=== PATIENT | male | born 1995 | race Caucasian/White ===

== ENCOUNTER 2017-01-03 14:22 | Emergency (ER) | payer BC ==
[~2017-01-03] VITALS: Ht 175.3 cm; Wt 71.0 kg
[~2017-01-03 14:22] MED LIST: AMOX1TAB10 PO; IBUP-1542 PO; INSU100C5 SQ; INSU100V27 SC; ONDA-43 PO
[2017-01-03 14:33] VITALS: Ht 175.3 cm; Wt 71.0 kg
[2017-01-03] MEDS ORDERED: IBUPROFEN 800 MG TAB PO ONE (17:00)
[2017-01-03] MEDS ORDERED: IBUP-1542 PO (17:32)
--- NOTE | 2017-01-03 17:43 | RADRPT ---
PROCEDURE: XR Hand. CLINICAL INDICATION: Trauma. Right hand pain. TECHNIQUE: Three views. Frontal, lateral, and oblique images of the right hand were obtained. COMPARISON: No prior studies are available for comparison. FINDINGS: There is no fracture or dislocation. The soft tissues are normal. Articular surfaces are intact. There is no lytic or blastic lesion. There is no radiopaque foreign body. IMPRESSION: 1. Unremarkable images of the right hand. RPTAT: QQ .Gio Madrigal MD, MD Date Time Electronically viewed and signed by .Gio Madrigal MD, on 01/03/2017 17:43 .R/
--- NOTE | 2017-01-03 20:19 | ERD ---
ER Documentation Chief Complaint Date/Time DATE: 01/03/17 TIME: 20:18 Chief Complaint right hand/finger pain from blunt trauma HPI Patient is a 21-year-old male with diabetes who presents with an injury to his right hand. He said that a chair fell on top of his right hand just prior to arrival. He has a blood blister at the distal right second finger. He has not had no treatment as of yet. He has full range of motion of the hand. ROS All systems reviewed and are negative except as per history of present illness. Medications Home Meds Active Scripts Ibuprofen* (Motrin*) 600 Mg Tab, 600 MG PO Q6H Y for PAIN AND OR ELEVATED TEMP, #30 TAB Prov:FREDI MCMAHAN MD 01/03/17 Amox Tr/Potassium Clavulanate (Amox Tr-K Clv 875-125 Mg Tab) 1 Tab Tablet, 1 TAB PO BID, #20 TAB Prov:CHRISTIANO GLOVER PA-C 02/03/16 Ibuprofen* (Motrin*) 600 Mg Tab, 600 MG PO Q6, #20 TAB Prov:CHRISTIANO GLOVER PA-C 02/03/16 Ondansetron Hcl* (Zofran*) 4 Mg Tab, 4 MG PO Q4H Y for NAUSEA AND OR VOMITING, # 20 TAB Prov:ANJU HARTMANN MD 09/05/15 Insulin Lisp Protam/Lisp Human* (Humalog Mix (75/25)*) 100 Units/Ml Susp, 0 SC AC BREAKFAST, #1 EA 1 Refill Prov:ANJU HARTMANN MD 09/05/15 Reported Medications Insulin Glargine,Hum.rec.anlog (Lantus) 100 U/Ml Cartridge, 0 UNITS SQ DAILY 01/21/12 Allergies Allergies: Coded Allergies: No Known Allergies (Verified Allergy, Mild, 08/25/14) PMhx/Soc History of Surgery: No Anesthesia Reaction: No Hx Neurological Disorder: No Hx Respiratory Disorders: No Hx Cardiac Disorders: No Hx Psychiatric Problems: No Hx Miscellaneous Medical Probl: Yes (DM Type 2) Hx Alcohol Use: Yes (OCCASIOANNALY BEER) Hx Substance Use: Yes (MARIJUANA) Hx Tobacco Use: Yes (1/2 PACK OF CIGARRETS A DAY) Smoking Status: Current some day smoker FmHx Family History: diabetes Physical Exam Vitals Vital Signs Date Time Temp Pulse Resp B/P Pulse Ox O2 Delivery O2 Flow Rate FiO2 01/03/17 14:33 98.2 82 18 132/81 97 Physical Exam Const: No acute distress Head: Atraumatic Eyes: Normal Conjunctiva ENT: Normal External Ears, Nose and Mouth. Neck: Full range of motion..~ No meningismus. Resp: Clear to auscultation bilaterally Cardio: Regular rate and rhythm, no murmurs Abd: Soft, non tender, non distended. Normal bowel sounds Skin: Small hematoma to the distal right second finger Back: No midline or flank tenderness Ext: No cyanosis, or edema, no deformity or bruising noted of the hand Neur: Awake and alert Psych: Normal Mood and Affect Results 24 hrs Current Medications Medications (Trade) Dose Ordered Sig/Yoselyn Route PRN Reason Start Time Stop Time Status Last Admin Dose Admin Ibuprofen (Motrin) 800 mg ONCE ONCE PO 01/03/17 17:00 01/03/17 17:01 DC 01/03/17 16:54 Procedures/MDM X-ray Hand 3V interpreted by me: Scaphoid: Normal Bones: No fracture Joints: No dislocation Foreign body: None Patient is a 21-year-old male presents with hematoma to the distal second finger as well as right hand pain. X-ray of the hand shows no fracture or dislocation. At this point I believe outpatient management is appropriate. I believe the patient likely has a hand contusion and distal second finger hematoma. The patient will need to follow-up closely with his primary doctor and could return for any worsening symptoms. I do not believe he requires further treatment or admission to the hospital this time. Departure Diagnosis: Primary Impression: Hematoma Additional Impression: Pain of hand Laterality: right Qualified Code: M79.641 - Pain of right hand Condition: Fair Patient Instructions: Contusion, Hand, Hematoma Additional Instructions: Call your primary care doctor TOMORROW for an appointment during the next 1-2 days.See the doctor sooner or return here if your condition worsens before your appointment time. FREDI MCMAHAN MD Jan 03, 2017 20:19
== END 2017-01-03 19:10 | disposition left against medical advice (07) ==
LOC: FTE 14:22 → E/R 19:10
DX: S60.021A Contusion of right index finger without damage to nail, initial encounter (principal); E11.9 Type 2 diabetes mellitus without complications; F17.210 Nicotine dependence, cigarettes, uncomplicated; W20.8XXA Other cause of strike by thrown, projected or falling object, initial encounter; Y92.9 Unspecified place or not applicable; Z79.4 Long term (current) use of insulin
CPT/HCPCS: 73130; Z7502; Z7610

== ENCOUNTER 2017-07-07 05:11 | Emergency (ER) | payer BC, MEDICAID ==
[~2017-07-07] VITALS: Ht 175.3 cm; Wt 69.5 kg
[2017-07-07 05:13] VITALS: Ht 175.3 cm; Wt 69.5 kg
[2017-07-07] MEDS ORDERED: ONDANSETRON 4 MG INJ IV STA (06:32)
[2017-07-07] MEDS ORDERED: SOD CHLORIDE 0.9% 1,000 ML IV STA (06:32)
[2017-07-07 07:24] LABS: BASOPHIL # 0.1 10^3/ul (0.0-0.1); BASOPHILS % 1.1 % (0.0-2.0); EOSINOPHILS # 0.4 10^3/ul (0.0-0.5); EOSINOPHILS % 4.7 % (0.0-7.0); HEMATOCRIT 44.1 % (42.0-52.0); HEMOGLOBIN 16.1 g/dl (14.0-18.0); LYMPHOCYTES % 26.3 % (15.0-51.0); MEAN CORPUSCULAR HEMOGLOBIN 32.3 pg (29.0-33.0); MEAN CORPUSCULAR HGB CONC 36.5 g/dl (32.0-37.0); MEAN CORPUSCULAR VOLUME 88.4 fl (82.0-101.0); MEAN PLATELET VOLUME 10.4 fl (7.4-10.4); MONOCYTE # 0.5 10^3/ul (0.3-0.9); MONOCYTES % 6.6 % (0.0-11.0); PLATELET COUNT 275 10^3/UL (140-415); RED BLOOD COUNT 4.99 10^6/ul (4.70-6.10); RED CELL DISTRIBUTION WIDTH 11.6 % (11.5-14.5); WHITE BLOOD COUNT 7.6 10^3/ul (4.8-10.8)
[2017-07-07 07:48] LABS: ALBUMIN 4.4 g/dl (3.3-4.9); ALBUMIN/GLOBULIN RATIO 1.62; BILIRUBIN,INDIRECT 0.5 mg/dl (0-1.1); BILIRUBIN,TOTAL 0.5 mg/dl (0.2-1.3); CALCIUM 10.4 mg/dl (8.4-10.2); CREATININE 0.69 mg/dl (0.61-1.24); POTASSIUM 3.9 mmol/L (3.5-5.1); TOTAL PROTEIN 7.1 g/dl (6.1-8.1)
[2017-07-07] MEDS ORDERED: KETOROLAC 30 MG INJ IV STA (08:43)
[2017-07-07 08:50] LABS: ADD UMIC NO; UR ASCORBIC ACID NEGATIVE (NEGATIVE); UR BILIRUBIN (Dip) NEGATIVE (NEGATIVE); UR BLOOD (Dip) NEGATIVE (NEGATIVE); UR CLARITY CLEAR (CLEAR); UR COLOR STRAW (YELLOW); UR GLUCOSE (Dip) 3+ mg/dL (NEGATIVE); UR KETONES (Dip) 1+ mg/dL (NEGATIVE); UR LEUKOCYTE ESTERASE (Dip) NEGATIVE Leu/ul (NEGATIVE); UR NITRITE (Dip) NEGATIVE (NEGATIVE); UR SPECIFIC GRAVITY (Dip) 1.027 (1.003-1.030); UR TOTAL PROTEIN (Dip) NEGATIVE (NEGATIVE); UR UROBILINOGEN (Dip) NEGATIVE (NEGATIVE)
[2017-07-07] MEDS ORDERED: IBUP-1542 PO (09:48)
[2017-07-07] MEDS ORDERED: ONDA4TAB14 PO (09:48)
--- NOTE | 2017-07-07 10:52 | ERD ---
ER Documentation Chief Complaint Date/Time DATE: 07/07/17 TIME: 10:49 Chief Complaint vomiting since 1600. Hx of DM Type 1 HPI 22-year-old male patient with a past medical history of type 1 diabetes presents to the ED complaining of vomiting since 4 PM yesterday. States that he has had intermittent vomiting for 1 week states that he also has body aches. Denies any abdominal pain, chest pain, shortness of breath, diarrhea, hematemesis, hemoptysis, melena. Patient reports reports that his son is also sick with cough cold symptoms. States that he still able to tolerate oral intake. Denies any decreased appetite. ROS All systems reviewed and are negative except as per history of present illness. Medications Home Meds Active Scripts Ibuprofen* (Motrin*) 600 Mg Tab, 600 MG PO Q6, #30 TAB Prov:DUANE JOHNSON PA-C 07/07/17 Ondansetron (Ondansetron Odt) 4 Mg Tab.rapdis, 4 MG PO Q6H Y for NAUSEA AND/OR VOMITING, #14 TAB Prov:DUANE JOHNSON PA-C 07/07/17 Ibuprofen* (Motrin*) 600 Mg Tab, 600 MG PO Q6H Y for PAIN AND OR ELEVATED TEMP, #30 TAB Prov:FREDI MCMAHAN MD 01/03/17 Amox Tr/Potassium Clavulanate (Amox Tr-K Clv 875-125 Mg Tab) 1 Tab Tablet, 1 TAB PO BID, #20 TAB Prov:CHRISTIANO GLOVER PA-C 02/03/16 Ibuprofen* (Motrin*) 600 Mg Tab, 600 MG PO Q6, #20 TAB Prov:CHRISTIANO GLOVER PA-C 02/03/16 Ondansetron Hcl* (Zofran*) 4 Mg Tab, 4 MG PO Q4H Y for NAUSEA AND OR VOMITING, # 20 TAB Prov:ANJU HARTMANN MD 09/05/15 Insulin Lisp Protam/Lisp Human* (Humalog Mix (75/25)*) 100 Units/Ml Susp, 0 SC AC BREAKFAST, #1 EA 1 Refill Prov:ANJU HARTMANN MD 09/05/15 Reported Medications Insulin Glargine,Hum.rec.anlog (Lantus) 100 U/Ml Cartridge, 0 UNITS SQ DAILY 3/26/12 Allergies Allergies: Coded Allergies: No Known Allergies (Verified Allergy, Mild, 08/25/14) PMhx/Soc History of Surgery: No Anesthesia Reaction: No Hx Neurological Disorder: No Hx Respiratory Disorders: No Hx Cardiac Disorders: No Hx Psychiatric Problems: No Hx Miscellaneous Medical Probl: Yes (DM 1) Hx Alcohol Use: No Hx Substance Use: No Hx Tobacco Use: No Smoking Status: Never smoker Physical Exam Vitals Vital Signs Date Time Temp Pulse Resp B/P Pulse Ox O2 Delivery O2 Flow Rate FiO2 07/07/17 05:13 97.9 91 20 139/81 97 Physical Exam Const: Buv-[id number], well-nourished. In no acute distress. Head: Atraumatic, normocephalic Eyes: Normal Conjunctiva without injection. No purulent discharge. ENT: Normal external ear, nose. Moist oropharynx without tonsillar exudates. Non -erythematous pharynx. Uvula midline. No drooling. No trismus. Neck: No cervical midline tenderness. Full range of motion. No meningismus. No cervical lymphadenopathy. No JVD. Resp: Clear to auscultation bilaterally. No wheezing, rhonchi, rales, or crackles. No accessory muscle use. No retractions. Cardio: Regular rate and rhythm. No murmurs, rubs or gallops. Abd: Soft, nontender, non distended. Normal bowel sounds. No palpable masses. No rebound tenderness. No guarding. Negative McBurney's point. Negative psoas sign. Negative obturator sign. Skin: No petechiae or rashes Back: No midline tenderness. No CVA tenderness. Ext: No cyanosis, or edema. Neur: Awake and alert. Normal gait. Normal coordination. Psych: Normal Mood and Affect Result Diagram: 07/07/17 0650 07/07/17 0650 Results 24 hrs Laboratory Tests Test 07/07/17 06:03 07/07/17 06:50 07/07/17 07:13 07/07/17 07:35 Bedside Glucose 266mg/dL 191mg/dL White Blood Count 7.610^3/ul Red Blood Count 4.9910^6/ul Hemoglobin 16.1g/dl Hematocrit 44.1% Mean Corpuscular Volume 88.4fl Mean Corpuscular Hemoglobin 32.3pg Mean Corpuscular Hemoglobin Concent 36.5g/dl Red Cell Distribution Width 11.6% Platelet Count 25157^3/UL Mean Platelet Volume 10.4fl Neutrophils % 61.0% Lymphocytes % 26.3% Monocytes % 6.6% Eosinophils % 4.7% Basophils % 1.1% Nucleated Red Blood Cells % 0.0/100WBC Neutrophils # (Manual) 4.710^3/ul Lymphocytes # 2.010^3/ul Monocytes # 0.510^3/ul Eosinophils # 0.410^3/ul Basophils # 0.110^3/ul Nucleated Red Blood Cells # 0.010^3/ul Sodium Level 139mmol/L Potassium Level 3.9mmol/L Chloride Level 100mmol/L Carbon Dioxide Level 23mmol/L Anion Gap 20 Blood Urea Nitrogen 15mg/dl Creatinine 0.69mg/dl Glucose Level 182mg/dl Calcium Level 10.4mg/dl Total Bilirubin 0.5mg/dl Direct Bilirubin 0.00mg/dl Indirect Bilirubin 0.5mg/dl Aspartate Amino Transf (AST/SGOT) 43IU/L Alanine Aminotransferase (ALT/SGPT) 192IU/L Alkaline Phosphatase 104IU/L Total Protein 7.1g/dl Albumin 4.4g/dl Globulin 2.70g/dl Albumin/Globulin Ratio 1.62 Lipase 124U/L Urine Color STRAW Urine Clarity CLEAR Urine pH 6.0 Urine Specific Sisters 1.027 Urine Ketones 1+mg/dL Urine Nitrite NEGATIVEmg/dL Urine Bilirubin NEGATIVEmg/dL Urine Urobilinogen NEGATIVEmg/dL Urine Leukocyte Esterase NEGATIVELeu/ul Urine Hemoglobin NEGATIVEmg/dL Urine Glucose 3+mg/dL Urine Total Protein NEGATIVEmg/dl Current Medications Medications (Trade) Dose Ordered Sig/Yoselyn Route PRN Reason Start Time Stop Time Status Last Admin Dose Admin Sodium Chloride (NS) 1,000 ml @ 1,000 mls/hr Q1H STAT IV 07/07/17 06:32 07/07/17 07:31 DC 07/07/17 07:05 Ondansetron HCl (Zofran Inj) 4 mg ONCE STAT IV 07/07/17 06:32 07/07/17 06:34 DC 07/07/17 07:04 Ketorolac Tromethamine (Toradol) 30 mg ONCE STAT IV 07/07/17 08:43 07/07/17 08:44 DC 07/07/17 08:50 Procedures/MDM 22-year-old male patient with a past medical history of type 1 diabetes presents to the ED complaining of vomiting that started at 4 AM yesterday. Patient is afebrile and nontoxic-appearing. Patient is in slight distress due to his body aches. Patient was further worked up with CBC, CMP, lipase, UA. Patient's pain and symptoms have improved after treatment with 30 mg IV ketorolac, 1 L of normal saline. CBC: No leukocytosis. No e/o of systemic infection. No e/o anemia. Accucheck: 266, 191 after 1 L normal saline CMP: No e/o severe acidosis, alkalosis, renal failure, diabetic ketoacidosis, liver disease (ALT 192) Lipase within normal limits. Urine: No leukocyte esterase, no nitrites, no hematuria. Negative Influenza. Patient's symptoms could likely be viral since his son is also sick with cough and cold symptoms. Low suspicion for gastritis, GERD, DKA, peptic ulcer disease , cholecystitis, choledocholithiasis, cholangitis, pancreatitis, appendicitis, bowel obstruction, ileus, volvulus, nephrolithiasis, pyelonephritis, hepatitis, perforated viscus, atypical OR, diverticulitis, abdominal hernia, acute abdomen , mesenteric ischemia or other emergent conditions. Discharge medications: Ibuprofen, Zofran Follow up with primary care physician in 1-2 days for referral to clerical supervisor. Instructed patient to return to the ED sooner for any worsening symptoms. Patient's questions were answered. Patient understood and agreed with discharge plan. Patient discharged stable. Departure Diagnosis: Primary Impression: Vomiting Vomiting type: unspecified Vomiting Intractability: unspecified Nausea presence: unspecified Qualified Code: R11.10 - Vomiting, intractability of vomiting not specified, presence of nausea not specified, unspecified vomiting type Additional Impression: Body aches Condition: Stable Patient Instructions: Vomiting (4Y-Adult) Referrals: COMM[facility]ITY [facility]IN[facility] YOU HAVE RECEIVED A MEDICAL SCREENING EXAM AND THE RESULTS INDICATE THAT YOU DO NOT HAVE A CONDITION THAT REQUIRES URGENT TREATMENT IN THE EMERGENCY DEPARTMENT. FURTHER EVALUATION AND TREATMENT OF YOUR CONDITION CAN WAIT UNTIL YOU ARE SEEN IN YOUR DOCTORS OFFICE WITHIN THE NEXT 1-2 DAYS. IT IS YOUR RESPONSIBILITY TO MAKE AN APPOINTMENT FOR FOLOW-UP CARE. IF YOU HAVE A PRIMARY DOCTOR --you should call your primary doctor and schedule an appointment IF YOU DO NOT HAVE A PRIMARY DOCTOR YOU CAN CALL OUR PHYSICIAN REFERRAL HOTLINE AT IF YOU CAN NOT AFFORD TO SEE A PHYSICIAN YOU CAN CHOSE FROM THE FOLLOWING [facility] [address] [facility] [address] [facility] [address] [facility] [address] [facility] [address] [facility]. [facility] [address] [facility]. [facility] YOU HAVE RECEIVED A MEDICAL SCREENING EXAM AND THE RESULTS INDICATE THAT YOU DO NOT HAVE A CONDITION THAT REQUIRES URGENT TREATMENT IN THE EMERGENCY DEPARTMENT. FURTHER EVALUATION AND TREATMENT OF YOUR CONDITION CAN WAIT UNTIL YOU ARE SEEN IN YOUR DOCTORS OFFICE WITHIN THE NEXT 1-2 DAYS. IT IS YOUR RESPONSIBILITY TO MAKE AN APPOINTMENT FOR FOLOW-UP CARE. IF YOU HAVE A PRIMARY DOCTOR --you should call your primary doctor and schedule and appointment IF YOU DO NOT HAVE A PRIMARY DOCTOR YOU CAN CALL OUR PHYSICIAN REFERRAL HOTLINE AT . IF YOU CAN NOT AFFORD TO SEE A PHYSICIAN YOU CAN CHOSE FROM THE FOLLOWING [facility]: [facility] [address] [place] [address] [facility] [address] [place] [address] [facility] [address] [place] [address] [facility] Additional Instructions: Call your primary care doctor TOMORROW for an appointment during the next 1-2 days.See the doctor sooner or return here if your condition worsens before your appointment time. DUANE JOHNSON PA-C Jul 07, 2017 10:52
== END 2017-07-07 10:01 | disposition home or self-care (01) ==
LOC: FTE 05:11
DX: R11.10 Vomiting, unspecified (principal); R52 Pain, unspecified; E10.9 Type 1 diabetes mellitus without complications; Z79.4 Long term (current) use of insulin
CPT/HCPCS: 36415; 80053; 81003; 82962; 83690; 85025; 87400; 96374; 96375; J1885; J2405; J7030; Z7502

== ENCOUNTER 2018-07-13 14:28 | Inpatient (IN) | END 2018-07-14 17:25 | disposition home or self-care (01) | DRG 639 ==

== ENCOUNTER 2018-08-23 04:43 | Emergency (ER) | END 2018-08-23 08:53 | disposition home or self-care (01) ==

== ENCOUNTER 2018-09-07 11:17 | Emergency (ER) | END 2018-09-07 13:23 | disposition home or self-care (01) ==

== ENCOUNTER 2018-09-07 21:49 | Inpatient (IN) | END 2018-09-10 16:06 | disposition home or self-care (01) | DRG 637 ==

== ENCOUNTER 2019-03-28 07:27 | Observation (INO) | payer BC ==
[~2019-03-28] VITALS: Ht 175.3 cm; Wt 73.2 kg
[~2019-03-28 07:27] MED LIST changes: -AMOX1TAB10 PO; +FLUC100T PO; -IBUP-1542 PO; -INSU100C5 SQ; +INSU100I17 SQ; +INSU100I33 SC; -INSU100V27 SC; -ONDA-43 PO; +ONDA4TAB13 PO; +PANT40TA3 PO
[2019-03-28] MEDS ORDERED: HALOPERIDOL 5 MG INJ IV ONE (08:00)
[2019-03-28] MEDS ORDERED: SOD CHLORIDE 0.9% 720 ML IV ONE (08:00)
[2019-03-28] MEDS ORDERED: ONDANSETRON 4 MG INJ IV STA ×2 (08:36→09:01)
[2019-03-28] MEDS ORDERED: ACCU-CHEK XX ONE (09:00)
[2019-03-28] MEDS ORDERED: INSULIN LISPRO 100 UNIT/ML VIAL SC ONE (09:00)
[2019-03-28] MEDS ORDERED: KETOROLAC 30 MG INJ IV STA (09:24)
[2019-03-28] MEDS ORDERED: ACETAMINOPHEN 325 MG TAB PO PRN (10:30)
[2019-03-28] MEDS ORDERED: ONDANSETRON 4 MG INJ IV PRN ×2 (10:30→11:00)
[2019-03-28] MEDS ORDERED: DEXTROSE 50% 50 ML SYRINGE IV PRN ×2 (11:00)
[2019-03-28] MEDS ORDERED: GLUCOSE GEL 15 GRAM TUBE PO PRN ×2 (11:00)
[2019-03-28] MEDS ORDERED: NACL 0.9% 3 ML SYG IV SCH (11:00)
[2019-03-28] MEDS ORDERED: GLUCOSE GEL 15 GRAM TUBE BUCCAL PRN (11:00)
[2019-03-28] MEDS ORDERED: GLUCAGON 1 MG INJ IM PRN (11:00)
[2019-03-28] MEDS ORDERED: INSU200I SQ (11:27)
--- NOTE | 2019-03-28 11:35 | ERD ---
ER Documentation Chief Complaint Chief Complaint vomiting since lasr night, coffe ground emesis noted, insulin dependent HPI Patient is a 24-year-old male with diabetes who presents saying that he is "puking black". He said it started this morning. He said that his blood sugar is high. He is noncompliant with his insulin. His blood sugar was 453 this morning. Upon review of old medical record the patient has multiple visits to the ER for various complaints. He does not remember the name of his primary doctor. ROS All systems reviewed and are negative except as per history of present illness. Medications Home Meds Reported Medications Insulin Lispro (Humalog Kwikpen) 200 Unit/1 Ml Insuln.pen, 0-12 UNIT SQ TIDM A for PER SLIDING SCALE, EA 03/28/19 Insulin Glargine,Hum.rec.anlog (Basaglar Kwikpen U-100) 100 Unit/1 Ml Insuln.pen, 30 UNIT SC QAM, EA 07/13/18 Discontinued Reported Medications Insulin Glulisine (Apidra Solostar) 100 Unit/1 Ml Insuln.pen, 8 UNIT SQ AC MEALS, #1 TUB 07/13/18 Discontinued Scripts Pantoprazole* (Protonix*) 40 Mg Tablet.dr, 40 MG PO DAILY for 30 Days, TAB Prov:URVASHI LUTHER MD 09/10/18 Fluconazole* (Diflucan*) 100 Mg Tablet, 100 MG PO DAILY for 6 Days, TAB Prov:URVASHI LUTHER MD 09/10/18 Ondansetron Hcl* (Zofran*) 4 Mg Tab, 4 MG PO Q4H PRN for NAUSEA AND OR VOMITING, #20 TAB Prov:CYRUS JOHNSON 09/07/18 Allergies Allergies: Coded Allergies: No Known Allergies (Verified Allergy, Mild, 09/07/18) PMhx/Soc History of Surgery: No Anesthesia Reaction: No Hx Neurological Disorder: No Hx Respiratory Disorders: No Hx Cardiac Disorders: No Hx Psychiatric Problems: No Hx Miscellaneous Medical Probl: Yes (DM, DKA, intractable nausea and vomiting) Hx Alcohol Use: Yes Hx Substance Use: Yes (MARIJUANA) Hx Tobacco Use: Yes Smoking Status: Current every day smoker FmHx Family History: diabetes Physical Exam Vitals Vital Signs Date Temp Pulse Resp B/P (MAP) Pulse Ox O2 O2 Flow FiO2 Time Delivery Rate 03/28/19 89 19 116/75 99 Room Air 10:30 (89) 03/28/19 110 21 145/85 99 Room Air 09:30 (105) 03/28/19 97.7 95 138/64 99 07:30 (88) Physical Exam Const: Moderate distress with vomiting Head: Atraumatic Eyes: Normal Conjunctiva ENT: Normal External Ears, Nose and Mouth. Neck: Full range of motion. No meningismus. Resp: Clear to auscultation bilaterally Cardio: Regular rate and rhythm, no murmurs Abd: Soft, non tender, non distended. Normal bowel sounds Skin: Pale skin Back: No midline or flank tenderness Ext: No cyanosis, or edema Neur: Awake and alert Psych: Normal Mood and Affect Result Diagram: 03/28/19 0741 03/28/19 0741 Results 24 hrs Laboratory Tests Test 03/28/19 07:33 03/28/19 07:41 03/28/19 07:44 03/28/19 08:32 Blood Gas Blood venous Specimen Source Arterial Blood 03/28/2019 8:00:2 Date Drawn 7 AM Arterial Blood VENOUS LINE Gas Puncture Site Bradley Test N/A Venous Blood pH 7.469 Venous Blood 30.6 mmHG pCO2 (Temp Corrected) Venous Blood pO2 37.3 mmHG (Temp Corrected) Venous Blood 21.7 mmol/L HCO3 Venous Blood 76.7 mmHG Oxygen Saturation Venous Blood -0.7 mmol/L Base Excess Venous Blood 16.5 g/dl Total Hemoglobin Venous Blood 75.9 % Oxyhemoglobin Venous Blood 0.2 % Methemoglobin Carboxyhemoglobi 0.8 % n Blood Gas 37.0 C Temperature Blood Gas ROOM AIR Modality FiO2 21.0 % Blood Gas Catina Notified Whom Blood Gas 03/28/2019 8:07:4 Notified Time 1 AM White Blood 14.2 10^3/ul Count Red Blood Count 5.26 10^6/ul Hemoglobin 16.5 g/dl Hematocrit 46.5 % Mean Corpuscular 88.4 fl Volume Mean Corpuscular 31.4 pg Hemoglobin Mean Corpuscular 35.5 g/dl Hemoglobin Tita nt Red Cell 11.3 % Distribution Width Platelet Count 316 10^3/UL Mean Platelet 10.5 fl Volume Immature 0.500 % Granulocytes % Neutrophils % 88.7 % Lymphocytes % 6.8 % Monocytes % 3.5 % Eosinophils % 0.3 % Basophils % 0.2 % Nucleated Red 0.0 /100WBC Blood Cells % Immature 0.070 10^3/ul Granulocytes # Neutrophils # 12.6 10^3/ul Lymphocytes # 1.0 10^3/ul Monocytes # 0.5 10^3/ul Eosinophils # 0.0 10^3/ul Basophils # 0.0 10^3/ul Nucleated Red 0.0 10^3/ul Blood Cells # Sodium Level 139 mmol/L Potassium Level 4.0 mmol/L Chloride Level 102 mmol/L Carbon Dioxide 24 mmol/L Level Anion Gap 13 Blood Urea 23 mg/dl Nitrogen Creatinine 0.81 mg/dl Est Glomerular > 60 mL/min Filtrat Rate mL/min Glucose Level 274 mg/dl Calcium Level 10.4 mg/dl Phosphorus Level 1.0 mg/dl Magnesium Level 1.8 mg/dl Troponin I < 0.012 ng/ml Bedside Glucose 254 mg/dL Urine Color YELLOW Urine Clarity SLIGHTLY CLOUDY Urine pH 5.0 Urine Specific 1.035 P[place]ree Urine Ketones 2+ mg/dL Urine Nitrite NEGATIVE mg/dL Urine Bilirubin NEGATIVE mg/dL Urine 1+ mg/dL Urobilinogen Urine Leukocyte NEGATIVE West/ul Esterase Urine 1 /HPF Microscopic RBC Urine 1 /HPF Microscopic WBC Urine Mucus FEW /HPF Urine Hemoglobin NEGATIVE mg/dL Urine Glucose 3+ mg/dL Urine Total 2+ mg/dl Protein Test 03/28/19 08:55 03/28/19 09:01 Bedside Glucose 363 mg/dL Prothrombin Time 12.5 Sec Prothrombin Time 1.0 Ratio INR 0.92 International Normalized Ratio Activated 20.0 Sec Partial Thrombop last Time Current Medications Medications Dose Sig/Yoselyn Start Time Status Last (Trade) Ordered Route PRN Stop Time Admin Dose Reason Admin Sodium 720 ml @ ONCE ONCE 03/28/19 DC 03/28/19 Chloride 720 mls/hr IV 08:00 03/28/19 07:51 08:59 Haloperidol 2.5 mg ONCE ONCE 03/28/19 DC 03/28/19 (Haldol) IV 08:00 03/28/19 07:51 08:01 Ondansetron 4 mg ONCE STAT 03/28/19 DC 03/28/19 HCl (Zofran IV 08:36 03/28/19 08:41 Inj) 08:37 Insulin 10 unit ONCE ONCE 03/28/19 DC 03/28/19 Human SC 09:00 03/28/19 08:58 Lispro 09:01 (Humalog) Diagnostic 1 ea 2 HRS AFTER 03/28/19 DC 03/28/19 Test (Pha) HUMALOG ONCE 09:00 03/28/19 08:55 (Accu-Chek) XX 09:01 Ondansetron 4 mg ONCE STAT 03/28/19 DC 03/28/19 HCl (Zofran IV 09:01 03/28/19 09:09 Inj) 09:02 Ketorolac 30 mg ONCE STAT 03/28/19 DC 03/28/19 Tromethamine IV 09:24 03/28/19 09:27 (Toradol) 09:25 Ondansetron 4 mg BRIDGE ORDER 03/28/19 HCl (Zofran PRN IV 10:30 03/29/19 Inj) NAUSEA/VOMITI 10:29 NG 650 mg ER BRIDGE 03/28/19 Acetaminophen PRN PO 10:30 03/29/19 (Tylenol .MILD PAIN 10:29 Tab) 1-3 OR TEMP Discontinue ONCE ONCE 03/28/19 DC Miscellaneous current oral XX 11:00 03/28/19 sulfonylur... 11:01 Information (* Miscellaneous Pharmacy Order) Insulin 11 units DAILY@199903/28/19 Glargine SC 20:00 (Lantus) Insulin 4 unit WITH MEALS 03/28/19 Aspart SC 12:00 (Novolog Insulin Pen) ONCE ONCE 03/28/19 DC Miscellaneous HYPOGLYCEMIA XX 11:00 03/28/19 PROTOCOL 11:01 Information w... (* Miscellaneous Pharmacy Order) Insulin NOVOLOG WITH MEALS 03/28/19 Aspart *MILD* BEDTIME SC 12:00 (Novolog ALGORITHM Insulin Pen) IV Flush 3 ml PER 03/28/19 (NS 3 ml) PROTOCOL IV 11:00 Ondansetron 4 mg Q6H PRN 03/28/19 HCl (Zofran IV 11:00 Inj) NAUSEA/VOMITI NG 1 ea NOTE XX 03/28/19 Miscellaneous 11:00 Information Glucose 15 gm Q15M PRN 03/28/19 (Glutose) PO DECREASED 11:00 GLUCOSE Glucose 22.5 gm Q15M PRN 03/28/19 (Glutose) PO DECREASED 11:00 GLUCOSE Dextrose 25 ml Q15M PRN 03/28/19 (D50w IV DECREASED 11:00 Syringe) GLUCOSE Dextrose 50 ml Q15M PRN 03/28/19 (D50w IV DECREASED 11:00 Syringe) GLUCOSE Glucagon 1 mg Q15M PRN 03/28/19 (Glucagen) IM DECREASED 11:00 GLUCOSE Glucose 15 gm Q15M PRN 03/28/19 (Glutose) BUCCAL 11:00 DECREASED GLUCOSE Procedures/MDM Patient is a 24-year-old male with diabetes who presents with hyperglycemia. The patient has no signs of diabetic ketoacidosis. He was given Haldol and 2 doses of Zofran but is still having nausea and vomiting. He will be admitted to the care of the panel team for hyperglycemia and dehydration as well as intractable vomiting. The patient will be admitted to a medical surgical observation bed. EKG read by me: Rate/Rhythm: Regular rate and rhythm at a normal rate Intervals: Normal Impression: No evidence of ischemia or arrhythmia Departure Diagnosis: Primary Impression: Vomiting Vomiting type: unspecified Vomiting Intractability: intractable Nausea presence: with nausea Qualified Codes: R11.2 - Nausea with vomiting, unspecified Additional Impressions: Dehydration Hyperglycemia Condition: FREDI Lugo MD Mar 28, 2019 11:35
[2019-03-28 11:46] VITALS: Ht 175.3 cm; Wt 73.2 kg
[2019-03-28 12:10] VITALS: BP 126/82; PULSE 98; RESP 16
[2019-03-28] MEDS: INSULIN ASPART [NOVOLOG] 3 ML PEN SC SCH ×5 (12:53→21:27)
[2019-03-28 14:08] VITALS: BP 121/67; PULSE 96; RESP 16
[2019-03-28] MEDS ORDERED: LORAZEPAM 2 MG INJ IV ONE (16:00)
[2019-03-28] MEDS ORDERED: METOCLOPRAMIDE 10 MG INJ IV PRN (16:30)
[2019-03-28] MEDS ORDERED: PROCHLORPERAZINE 10 MG INJ IV PRN (16:30)
[2019-03-28] MEDS ORDERED: SCOPOLAMINE 1.5 MG PATCH TRANSDERM ONE (17:00)
--- NOTE | 2019-03-28 17:13 | HP ---
Date/Time of Note Date/Time of Note DATE: 03/28/19 TIME: 16:11 Assessment/Plan VTE Prophylaxis Pharmacological prophylaxis: heparin Lines/Catheters IV Catheter Type (from Nrsg): Peripheral IV Assessment/Plan Hospital Course Appears uncomfortable Vomiting RRR Abdomen soft nt nd no edema A/P: 24 yo male with poorly controlled type 1 diabetes and recurrent episodes of vomiting presents again with nausea and vomiting syndrome - Viral gastroentrieitis a possibility, cannibinoid hyperemesis a possibility as well. Perhpas related to DM but DKA is not present - Will provide supportive care for now with antiemetics and IV fluids DMI with hyperglyceima: - Basal/bolus insulin Result Diagram: 03/28/19 0741 03/28/19 0741 Results 24hrs Laboratory Tests Test 03/28/19 07:33 03/28/19 07:41 03/28/19 07:44 03/28/19 08:32 Blood Gas Blood venous Specimen Source Arterial Blood 03/28/2019 8:00:27 Date Drawn AM Arterial Blood VENOUS LINE Gas Puncture Site Bradley Test N/A Venous Blood pH 7.469 H Venous Blood 30.6 L pCO2 (Temp Corrected) Venous Blood pO2 37.3 H (Temp Corrected) Venous Blood 21.7 L HCO3 Venous Blood 76.7 H Oxygen Saturation Venous Blood -0.7 Base Excess Venous Blood 16.5 Total Hemoglobin Venous Blood 75.9 Oxyhemoglobin Venous Blood 0.2 Methemoglobin Carboxyhemoglobi 0.8 n Blood Gas 37.0 Temperature Blood Gas ROOM AIR Modality FiO2 21.0 Blood Gas M.D. Notified Whom Blood Gas 03/28/2019 8:07:41 Notified Time AM White Blood 14.2 #H Count Red Blood Count 5.26 Hemoglobin 16.5 Hematocrit 46.5 Mean Corpuscular 88.4 Volume Mean Corpuscular 31.4 Hemoglobin Mean Corpuscular 35.5 Hemoglobin Tita nt Red Cell 11.3 L Distribution Width Platelet Count 316 Mean Platelet 10.5 H Volume Immature 0.500 H Granulocytes % Neutrophils % 88.7 H Lymphocytes % 6.8 L Monocytes % 3.5 Eosinophils % 0.3 Basophils % 0.2 Nucleated Red 0.0 Blood Cells % Immature 0.070 H Granulocytes # Neutrophils # 12.6 H Lymphocytes # 1.0 Monocytes # 0.5 Eosinophils # 0.0 Basophils # 0.0 Nucleated Red 0.0 Blood Cells # Sodium Level 139 Potassium Level 4.0 Chloride Level 102 Carbon Dioxide 24 Level Anion Gap 13 Blood Urea 23 H Nitrogen Creatinine 0.81 Est Glomerular > 60 Filtrat Rate mL/min Glucose Level 274 H Calcium Level 10.4 H Phosphorus Level 1.0 L Magnesium Level 1.8 Troponin I < 0.012 Bedside Glucose 254 H Urine Color YELLOW Urine Clarity SLIGHTLY CLOUDY A Urine pH 5.0 Urine Specific 1.035 H [place] Urine Ketones 2+ H Urine Nitrite NEGATIVE Urine Bilirubin NEGATIVE Urine 1+ H Urobilinogen Urine Leukocyte NEGATIVE Esterase Urine 1 Microscopic RBC Urine 1 Microscopic WBC Urine Mucus FEW A Urine Hemoglobin NEGATIVE Urine Glucose 3+ H Urine Total 2+ H Protein Test 03/28/19 08:55 03/28/19 09:01 03/28/19 12:51 Bedside Glucose 363 H 246 H Prothrombin Time 12.5 Prothrombin Time 1.0 Ratio INR 0.92 International Normalized Ratio Activated 20.0 L Partial Thrombop last Time HPI/ROS Admit Date/Time Admit Date/Time Mar 28, 2019 at 10:22 Hx of Present Illness 24 yo male with h/o type 1 diabetes, recurrent nausea/vomiting syndrome presents again with nausea and vomiting Patient has been hosptialized numerous times over past year for vomiting. In August underwent endoscopy with biopsies negative. Has been well in the meantime. Over past day has developed severe nausea and vomiting. Had some diarreha this AM. Continues to use mairjjuana daily. Last used it yesterday. Denies abdominal pain. No fevers or chills PMH/Family/Social Past Medical History Medical History: diabetes Medications Current Medications Ondansetron HCl (Zofran Inj) 4 mg BRIDGE ORDER PRN IV NAUSEA/VOMITING; Start 03/28/19 at 10:30; Stop 03/29/19 at 10:29 Acetaminophen (Tylenol Tab) 650 mg ER BRIDGE PRN PO .MILD PAIN 1-3 OR TEMP; Start 03/28/19 at 10:30; Stop 03/29/19 at 10:29 Insulin Glargine (Lantus) 11 units DAILY@2000 SC ; Start 03/28/19 at 20:00 Insulin Aspart (Novolog Insulin Pen) 4 unit WITH MEALS SC Last administered on 03/28/19at 12:53; Admin Dose 4 UNIT; Start 03/28/19 at 12:00 Insulin Aspart (Novolog Insulin Pen) NOVOLOG *MILD* ALGORITHM WITH MEALS BEDTIME SC Last administered on 03/28/19at 12:53; Admin Dose 3 UNIT; Start 03/28/19 at 12:00 IV Flush (NS 3 ml) 3 ml PER PROTOCOL IV ; Start 03/28/19 at 11:00 Ondansetron HCl (Zofran Inj) 4 mg Q6H PRN IV NAUSEA/VOMITING Last administered on 03/28/19at 12:04; Admin Dose 4 MG; Start 03/28/19 at 11:00 Miscellaneous Information 1 ea NOTE XX ; Start 03/28/19 at 11:00 Glucose (Glutose) 15 gm Q15M PRN PO DECREASED GLUCOSE; Start 03/28/19 at 11:00 Glucose (Glutose) 22.5 gm Q15M PRN PO DECREASED GLUCOSE; Start 03/28/19 at 11:00 Dextrose (D50w Syringe) 25 ml Q15M PRN IV DECREASED GLUCOSE; Start 03/28/19 at 11:00 Dextrose (D50w Syringe) 50 ml Q15M PRN IV DECREASED GLUCOSE; Start 03/28/19 at 11:00 Glucagon (Glucagen) 1 mg Q15M PRN IM DECREASED GLUCOSE; Start 03/28/19 at 11:00 Glucose (Glutose) 15 gm Q15M PRN BUCCAL DECREASED GLUCOSE; Start 03/28/19 at 11:00 Coded Allergies: No Known Allergies (Verified Allergy, Mild, 09/07/18) Past Surgical History Past Surgical Hx: no surgical history Family History Significant Family History: no pertinent family hx Social History Smoking Status: Current every day smoker Exam/Review of Systems Vital Signs Vitals Vital Signs Date Temp Pulse Resp B/P (MAP) Pulse Ox O2 O2 Flow FiO2 Time Delivery Rate 03/28/19 98.6 96 16 121/67 94 14:08 (85) 03/28/19 Room Air 12:10 EUNICE SAMANO MD Mar 28, 2019 17:13
[2019-03-28 19:30] VITALS: BP 130/73; PULSE 98; RESP 16
[2019-03-28] MEDS ORDERED: INSULIN GLARGINE [LANTus] (100 UNITS/ML) SYG SC SCH (20:00)
[2019-03-29 01:41] VITALS: BP 128/69; PULSE 88; RESP 18
[2019-03-29 07:33] VITALS: BP 119/58; PULSE 89; RESP 18
[2019-03-29] MEDS: INSULIN ASPART [NOVOLOG] 3 ML PEN SC SCH ×2 (07:53→12:00)
[2019-03-29] MEDS ORDERED: INSULIN ASPART [NOVOLOG] 3 ML PEN SC SCH ×2 (08:00→12:00)
[2019-03-29] MEDS ORDERED: SOD CHLORIDE 0.9% 1,000 ML IV ONE (10:30)
[2019-03-29] MEDS ORDERED: ONDA4TAB8 PO (14:47)
--- NOTE | 2019-03-29 14:48 | PDOCDIS ---
Discharge Instructions DIAGNOSIS Discharge Diagnosis Nausea CONDITION [id number] Patient Condition: [id number] Stable FOLLOW UP/APPOINTMENTS Follow-up Plan Continue insulin as prescribed by your doctor Avoid marijuana use as it may be causing your nausea EUNICE Barkley MD Mar 29, 2019 14:48
--- NOTE | 2019-03-29 14:49 | DS ---
Date/Time of Note Date/Time of Note DATE: 03/29/19 TIME: 14:48 Discharge Summary Admission/Discharge Info Admit Date/Time Mar 28, 2019 at 10:22 Discharge Date/Time Discharge Diagnosis Nausea Patient Condition: Stable Hx of Present Illness 24 yo male with h/o type 1 diabetes, recurrent nausea/vomiting syndrome presents again with nausea and vomiting Patient has been hosptialized numerous times over past year for vomiting. In August underwent endoscopy with biopsies negative. Has been well in the meantime. Over past day has developed severe nausea and vomiting. Had some diarreha this AM. Continues to use mairjjuana daily. Last used it yesterday. Denies abdominal pain. No fevers or chills Hospital Course 24 yo male with poorly controlled type 1 diabetes and recurrent episodes of vomiting presents again with nausea and vomiting syndrome - Viral gastroentrieitis a possibility, cannibinoid hyperemesis a possibility as well. Perhpas related to DM but DKA is not present - He was provided supportive care for now with antiemetics and IV fluids Symptoms resolved and he was discharged home per his request. Zofran was provided Home Meds Active Scripts Ondansetron Hcl* (Zofran*) 4 Mg Tablet, 4 MG PO Q6H PRN for NAUSEA AND OR VOMITING for 10 Days, #10 TAB Prov:EUNICE SAMANO MD 03/29/19 Reported Medications Insulin Lispro (Humalog Kwikpen) 200 Unit/1 Ml Insuln.pen, 0-12 UNIT SQ TIDM A for PER SLIDING SCALE, EA 03/28/19 Insulin Glargine,Hum.rec.anlog (Basaglar Kwikpen U-100) 100 Unit/1 Ml Insuln.pen, 30 UNIT SC QAM, EA 07/13/18 Discontinued Reported Medications Insulin Glulisine (Apidra Solostar) 100 Unit/1 Ml Insuln.pen, 8 UNIT SQ AC MEALS, #1 TUB 07/13/18 Discontinued Scripts Pantoprazole* (Protonix*) 40 Mg Tablet.dr, 40 MG PO DAILY for 30 Days, TAB Prov:URVASHI LUTHER MD 09/10/18 Fluconazole* (Diflucan*) 100 Mg Tablet, 100 MG PO DAILY for 6 Days, TAB Prov:URVASHI LUTHER MD 09/10/18 Ondansetron Hcl* (Zofran*) 4 Mg Tab, 4 MG PO Q4H PRN for NAUSEA AND OR VOMITING, #20 TAB Prov:CYRUS JOHNSON 09/07/18 Follow-up Plan Continue insulin as prescribed by your doctor Avoid marijuana use as it may be causing your nausea [facility] Primary Care Provider Nuno Simental Pending Labs Laboratory Tests Test 03/28/19 17:25 03/28/19 21:25 03/29/19 02:10 03/29/19 04:53 Bedside 300 219 303 Glucose mg/dL (70-220) mg/dL (70-220) mg/dL (70-220) White Blood 10.5 Count 10^3/ul (4.8-1 0.8) Red Blood 4.46 Count 10^6/ul (4.70- 6.10) Hemoglobin 14.2 g/dl (14.0-18. 0) Hematocrit 41.1 % (42.0-52.0) Mean 92.2 Corpuscular fl (82.0-101.0 Volume ) Mean 31.8 Corpuscular pg (29.0-33.0) Hemoglobin Mean 34.5 Corpuscular g/dl (32.0-37. Hemoglobin Conc 0) ent Red Cell 11.4 Distribution % (11.5-14.5) Width Platelet Count 252 10^3/UL (140-4 15) Mean Platelet 10.7 Volume fl (7.4-10.4) Immature 0.500 Granulocytes % % (0.001-0.429 ) Neutrophils % 76.9 % (39.0-77.0) Lymphocytes % 14.5 % (15.0-51.0) Monocytes % 7.4 % (0.0-11.0) Eosinophils % 0.4 % (0.0-7.0) Basophils % 0.3 % (0.0-2.0) Nucleated Red 0.0 Blood Cells % /100WBC (0.0-0 .0) Immature 0.050 Granulocytes # 10^3/ul (0.0-0 .031) Neutrophils # 8.1 10^3/ul (1.6-7 .5) Lymphocytes # 1.5 10^3/ul (0.8-2 .9) Monocytes # 0.8 10^3/ul (0.3-0 .9) Eosinophils # 0.0 10^3/ul (0.0-0 .5) Basophils # 0.0 10^3/ul (0.0-0 .1) Nucleated Red 0.0 Blood Cells # 10^3/ul (0.0-0 .0) Hemoglobin A1c 8.8 % (0-5.9) Test 03/29/19 04:54 03/29/19 06:44 03/29/19 07:49 03/29/19 12:58 Sodium Level 136 mmol/L (135-144 ) Potassium 4.3 Level mmol/L (3.5-5.1 ) Chloride Level 100 mmol/L (97-110) Carbon Dioxide 23 Level mmol/L (21-31) Anion Gap 13 (5-13) Blood Urea 20 mg/dl (7-20) Nitrogen Creatinine 0.75 mg/dl (0.61-1.2 4) Est Glomerular > 60 Filtrat mL/min (>60) Rate mL/min Glucose Level 412 mg/dl (70-220) Calcium Level 9.3 mg/dl (8.4-10.2 ) Total 0.5 Bilirubin mg/dl (0.2-1.3) Direct 0.00 Bilirubin mg/dl (0.00-0.2 0) Indirect 0.5 Bilirubin mg/dl (0-1.1) Aspartate Amino 26 IU/L (15-46) Transf (AST/SGO T) Alanine 27 IU/L (13-69) Aminotransferas e (ALT/SGPT) Alkaline 87 Phosphatase IU/L (42-121) Total Protein 6.2 g/dl (6.1-8.1) Albumin 3.8 g/dl (3.3-4.9) Globulin 2.40 g/dl (1.3-3.2) Albumin/Globuli 1.58 n Ratio Bedside 372 408 139 Glucose mg/dL (70-220) mg/dL (70-220) mg/dL (70-220) EUNICE SAMANO MD Mar 29, 2019 14:49
[2019-03-29] MEDS ORDERED: INSULIN GLARGINE [LANTus] (100 UNITS/ML) SYG SC SCH (20:00)
== END 2019-03-29 15:45 | disposition home or self-care (01) ==
LOC: E/R 07:27 → 2NE 10:22 → SUATTDRO 10:38
PROVIDERS: ADMIT Internal Medicine; ATTEND Internal Medicine
DX: R11.2 Nausea with vomiting, unspecified (principal); E10.65 Type 1 diabetes mellitus with hyperglycemia; F12.10 Cannabis abuse, uncomplicated; Z79.4 Long term (current) use of insulin
CPT/HCPCS: 36415; 71045; 80048; 80053; 81001; 82803; 82962; 83036; 83735; 84100; 84484; 85025; 85610; 85730; 86850; 86900; 86901; 93005; 96372; 96374; 96375; J0780; J1630; J1815; J1885; J2060; J2405; J2765; J7030; Z7500; Z7502; Z7610; 99217; G0378